=== PATIENT | male | born 1990 | race Caucasian/White ===

== ENCOUNTER 2025-01-26 10:02 | Outpatient (CLI) | payer OTHER, SELFPAY | END 2025-01-26 10:03 | disposition home or self-care (01) | LOC: NFLDREF 01-31 20:23 | PROVIDERS: PCP Nurse Practitioner Family; Visit Provider Nurse Practitioner Family | DX: M25.50 Pain in unspecified joint (principal); Z13.6 Encounter for screening for cardiovascular disorders | CPT/HCPCS: 80053; 80061 ==

== ENCOUNTER 2025-10-12 08:44 | Outpatient (CLI) | payer OTHER, SELFPAY ==
--- NOTE | 2025-10-12 09:00 | CRLHL7_ITS ---
For Patients: As a result of the Century Cures Act, medical imaging exams and procedure reports are released immediately into your electronic medical record. You may view this report before your referring provider. If you have questions, please contact your health care provider. Indication: Chronic sinus disease Technique: Performed without IV contrast Comparison: None available Findings: Frontal sinuses: The frontal sinuses are enlarged and nearly completely opacified with mucosal thickening. Ethmoid sinuses: Mild mucosal thickening involving the ethmoid sinuses. Maxillary sinuses: Mild mucosal thickening within the maxillary sinuses along with small mucous retention cysts which measure up to 1.3 cm. The maxillary sinus drainage pathways are patent on both sides. Sphenoid sinuses: Clear, including both sphenoethmoidal recesses. Nasal Cavity: Rightward curvature of the nasal septum. Large darlene bullosa left middle turbinate measures 3 cm. No nasal polyp. No TMJ abnormalities identified. The visualized portions of the orbits, intracranial contents and upper soft tissue neck are grossly negative. Impression: 1. Severe bilateral frontal sinus disease. 2. Severe rightward curvature of the nasal septum with large left middle turbinate darlene bullosa. Please note that all CT scans at this facility use dose modulation, iterative reconstruction, and/or weight-based dosing when appropriate to reduce radiation dose to as low as reasonably achievable. Dictated by Santiago Kelsey MD @ 10/12/2025 10:22:38 AM (Electronically Signed)
== END 2025-10-12 08:45 | disposition home or self-care (01) ==
LOC: CT 08:44
PROVIDERS: PCP Nurse Practitioner Family; Visit Provider Otolaryngology
DX: J32.9 Chronic sinusitis, unspecified (principal); J34.2 Deviated nasal septum
CPT/HCPCS: 70486

== ENCOUNTER 2025-10-25 11:25 | Outpatient (CLI) | payer OTHER, SELFPAY ==
--- NOTE | 2025-11-07 10:50 | W.PM.SLEEP ---
Sleep Study Details Details Interpreting Provider: Brisa Date of Sleep Study: 10/25/25 Sleep Study Details: STUDY TYPE:? Home unattended ? BMI:? 43.01 ORDERING PROVIDER:Krishna Shelton INDICATION:? Concern for sleep apnea ? SLEEP SUMMARY:? 420 minutes monitored RESPIRATORY SUMMARY:? AHI 21.1, CMS guideline AHI 15.6 Low oxygen 76 23.3% of study oxygen less than 90% Snoring 97% PERIODIC LIMB MOVEMENTS OF SLEEP:? Not recorded CARDIAC:? Range 51-112, mean 67.3 beats per minute IMPRESSION:? Elevated BMI, moderate obstructive sleep apnea, desaturation below 90% noted 23.3% of study RECOMMENDATION: Weight loss is recommended. AutoSet CPAP would be reasonable to consider versus an in-lab titration. Once effective therapy is established an overnight oximetry should be performed to determine if the patient requires nocturnal oxygen.
== END 2025-10-25 11:26 | disposition home or self-care (01) ==
LOC: SLEEP 11:25
PROVIDERS: PCP Nurse Practitioner Family; Visit Provider Nurse Practitioner Family
DX: G47.33 Obstructive sleep apnea (adult) (pediatric) (principal)
CPT/HCPCS: 95806